=== PATIENT | female | born 1985 | race Hispanic/Latino ===

== ENCOUNTER → 2023-07-02 | Day surgery (SDC) | payer OTHER ==
[~2023-07-02] MED LIST: ACETAMINOPHEN325 M1 PO; BENTYL10 MG/1 ML IV; CEFUROXIME500 MG PO; DEXMEDETOMIDINE HCL 200 MCG/2 ML VIAL ONE; FAMOTIDINE20 MG PO; FENTANYL CITRATE/PF 100MCG/2 ML INJ ONE; LIDOCAINE HCL 2% LOCAL INJ 5 ML SDV VIAL INJ ONE; METRONIDAZOLE500 MG PO; MIDAZOLAM HCL 2 MG/2 ML VIAL ONE; ONDANSETRON ODT4 MG PO; PROPOFOL IV EMULSION 10 MG/ML 50 ML VIAL IV ONE; SIMETHICONE 40 MG/0.6 ML BTL ONE
[2023-07-02 11:14] VITALS: TEMP 98.3
[2023-07-02 11:40] VITALS: BP 112/73; PULSE 71; RESP 15; O2SAT 100
[2023-07-02] MEDS: LACTATED RINGER'S 1,000 ML ONE (12:02)
== END | disposition home or self-care (01) ==
LOC: OR 08:52
PROVIDERS: ATTEND Internal Medicine Gastroenterology
DX: K57.30 Diverticulosis of large intestine without perforation or abscess without bleeding (principal); K64.8 Other hemorrhoids; K59.09 Other constipation; K21.9 Gastro-esophageal reflux disease without esophagitis; K44.9 Diaphragmatic hernia without obstruction or gangrene; Z71.3 Dietary counseling and surveillance; Z87.19 Personal history of other diseases of the digestive system; Z88.0 Allergy status to penicillin; Z68.34 Body mass index [BMI] 34.0-34.9, adult
CPT/HCPCS: 45378; 81025; J2001; J2250; J2704; J3010; J7121